=== PATIENT | female | born 1985 | race Caucasian/White ===

== ENCOUNTER → 2022-10-24 | Outpatient (CLI) | payer BC ==
[~2022-10-24] MED LIST: Augmentin 875-1 EACH PO; DEPLIN-ALGAL O1 EAC1 PO; LAMO100 PO
== END | disposition home or self-care (01) ==
LOC: LAB 11:50 → PLD 11:50 → LAB SHORT 11:50
DX: D22.62 Melanocytic nevi of left upper limb, including shoulder (principal)
CPT/HCPCS: 88305